=== PATIENT | male | born 1940 | race Caucasian/White ===

== ENCOUNTER 2017-07-01 14:46 | Inpatient (IN) | payer MEDICARE, OTHER ==
[~2017-07-01] VITALS: Ht 172.7 cm; Wt 78.2 kg
[2017-07-01] MEDS ORDERED: LORAZEPAM 2 MG/ML 1 ML VIAL ONE ×2 (15:14→20:23)
[2017-07-01 15:43] LABS: BASOPHILS % (AUTO) 0.4 % (0.0-5.0); EOSINOPHILS % (AUTO) 0.6 % (0.0-8.0); HEMATOCRIT 35.5 % (42-54); LYMPHOCYTES % (AUTO) 14.7 % (21.0-51.0); MEAN CORPUSCULAR HEMOGLOBIN 30.6 pg (27.0-33.0); MEAN CORPUSCULAR VOLUME 89.8 fL (79-99); MONOCYTES % (AUTO) 6.7 % (3.0-13.0); NEUTROPHILS % (AUTO) 77.6 % (40.0-77.0); PLATELET COUNT (AUTO) 290 K/uL (130-400); RED BLOOD CELL COUNT(AUTO) 3.95 MIL/uL (4.50-6.20); RED CELL DISTRIBUTION WIDTH 13.6 % (11.0-15.5); WHITE BLOOD COUNT (AUTO) 9.4 K/uL (4.8-10.8)
[2017-07-01 15:51] LABS: AMPHET/METH SCREEN,URINE NEGATIVE (NEGATIVE); BARBITURATE SCREEN, URINE NEGATIVE (NEGATIVE); BENZODIAZEPINES SCREEN,URINE NEGATIVE (NEGATIVE); CANNABINOID SCREEN,URINE NEGATIVE (NEGATIVE); COCAINE SCREEN,URINE NEGATIVE (NEGATIVE); OPIATE SCREEN,URINE POSITIVE (NEGATIVE); PHENCYCLIDINE SCREEN,URINE NEGATIVE (NEGATIVE)
[2017-07-01 15:52] LABS: CARBON DIOXIDE 31 mmol/L (21-32); CHLORIDE 100 mmol/L (101-111); CREATININE 0.9 mg/dL (0.5-1.5); GLOMERULAR FILTR. RATE CALC 87 mL/min (>60); GLUCOSE,RANDOM 110 mg/dL (70-105); POTASSIUM 3.7 mmol/L (3.5-5.1); SODIUM SERUM 140 mmol/L (136-145); UREA NITROGEN, BLOOD 9 mg/dL (7-18)
[2017-07-01 15:57] LABS: ACETAMINOPHEN < 1 mcg/mL (10-29); SALICYLATE < 2.8 mg/dL (2.8-20.0)
[2017-07-01 16:29] LABS: APPEARANCE,URINE Clear (CLEAR); BILIRUBIN,URINE Small (NEGATIVE); COLOR,URINE Dark Yellow (YELLOW); GLUCOSE, URINE (UA) Negative (NEGATIVE); KETONES,URINE >=80 mg/dL (NEGATIVE); LEUKOCYTE ESTERASE ,URINE Trace (NEGATIVE); NITRATE,URINE Negative (NEGATIVE); OCCULT BLOOD,URINE Negative (NEGATIVE); PH,URINE 5.5 (5.0-8.0); PROTEIN,URINE Negative (NEGATIVE)
[2017-07-01 16:47] LABS: BACTERIA,URINE Rare /HPF (None Seen); MUCUS,URINE Few LPF (None Seen); RBC,URINE 0-1 /HPF (0-1); SQUAMOUS EPITHELIAL CELL,UR Rare /LPF (0-2)
[2017-07-01] MEDS ORDERED: IOPAMIDOL-370 100 ML VIAL IV ONE (17:48)
[2017-07-01] MEDS ORDERED: ENOXAPARIN SODIUM 100 MG/1 ML SQ ONE (20:01)
[2017-07-01 21:31] VITALS: BP 125/69
[2017-07-01 23:32] VITALS: BP 128/74
[2017-07-02] VITALS (7 sets, daily range): BP systolic 109–146; BP diastolic 69–74
[2017-07-02] MEDS ORDERED: ONDANSETRON HCL 4 MG/2 ML VIAL IV PRN (01:45)
[2017-07-02] MEDS ORDERED: ACETAMINOPHEN 325 MG TAB PO PRN (01:45)
[2017-07-02] MEDS ORDERED: LORAZEPAM 2 MG/ML 1 ML VIAL IM PRN (01:45)
[2017-07-02] MEDS ORDERED: IPRATROPIUM/ALBUTEROL SULFATE 3 ML SOLUTION IH PRN (01:45)
[2017-07-02] MEDS ORDERED: HYDRALAZINE HCL 20 MG/ML VIAL IV PRN (01:45)
[2017-07-02 04:00] LABS: BASOPHILS % (AUTO) 0.3 % (0.0-5.0); EOSINOPHILS % (AUTO) 1.2 % (0.0-8.0); HEMATOCRIT 33.2 % (42-54); LYMPHOCYTES % (AUTO) 23.1 % (21.0-51.0); MEAN CORPUSCULAR HEMOGLOBIN 30.9 pg (27.0-33.0); MEAN CORPUSCULAR HGB CONC 34.3 g/dL (32.0-36.0); MONOCYTES % (AUTO) 9.4 % (3.0-13.0); PLATELET COUNT (AUTO) 256 K/uL (130-400); RED BLOOD CELL COUNT(AUTO) 3.69 MIL/uL (4.50-6.20); RED CELL DISTRIBUTION WIDTH 13.6 % (11.0-15.5)
[2017-07-02 04:04] LABS: CREATININE 0.8 mg/dL (0.5-1.5); POTASSIUM 3.8 mmol/L (3.5-5.1)
[2017-07-02] MEDS: FAMOTIDINE 20MG TAB 20 MG TAB PO SCH ×2 (08:47→21:41)
[2017-07-02] MEDS: ENOXAPARIN SODIUM 80 MG/0.8 ML SQ SCH ×2 (08:48→21:41)
[2017-07-02] MEDS ORDERED: ACET1TAB25 PO (10:17)
[2017-07-02] MEDS ORDERED: SYSTANE I PO (10:17)
[2017-07-02] MEDS ORDERED: ASPI-1181 PO (10:17)
[2017-07-02] MEDS ORDERED: PRAV80TA21 PO (10:17)
[2017-07-02] MEDS ORDERED: METO25TA6 PO (10:17)
[2017-07-02] MEDS ORDERED: FOLI1TAB15 PO (10:17)
[2017-07-02] MEDS ORDERED: CYAN250010 PO (10:17)
[2017-07-02] MEDS ORDERED: SERT50TA12 PO (10:17)
[2017-07-02] MEDS: MORPHINE SULFATE 2 MG/ML 1ML SYG IV PRN ×3 (10:33→22:48)
[2017-07-03 03:49] VITALS: BP 136/73
[2017-07-03 07:00] VITALS: BP 128/80
[2017-07-03] MEDS: MORPHINE SULFATE 2 MG/ML 1ML SYG IV PRN ×3 (08:35→17:28)
[2017-07-03] MEDS: ENOXAPARIN SODIUM 80 MG/0.8 ML SQ SCH (08:35)
[2017-07-03] MEDS: FAMOTIDINE 20MG TAB 20 MG TAB PO SCH (08:36)
[2017-07-03 11:00] VITALS: BP 146/89
[2017-07-03 16:00] VITALS: BP 132/78
== END 2017-07-03 18:26 | disposition home or self-care (01) | DRG 176 ==
LOC: EDH 14:46 → EDHIP 19:56 → 2DH 20:48
PROVIDERS: ADMIT Internal Medicine; ATTEND Internal Medicine
DX: I26.99 Other pulmonary embolism without acute cor pulmonale (principal); F03.90 Unspecified dementia, unspecified severity, without behavioral disturbance, psychotic disturbance, mood disturbance, and anxiety; E78.5 Hyperlipidemia, unspecified; F41.9 Anxiety disorder, unspecified; I10 Essential (primary) hypertension; I25.10 Atherosclerotic heart disease of native coronary artery without angina pectoris; Z87.891 Personal history of nicotine dependence; Z95.1 Presence of aortocoronary bypass graft; Z90.49 Acquired absence of other specified parts of digestive tract
CPT/HCPCS: 36415; 71275; 80048; 80305; 81001; 82948; 85025; 85378; 93306; 93970; 94664; A4565; G0480; G0481; J1650; J2060; Q9967

== ENCOUNTER 2018-05-05 18:32 | Emergency (ER) | payer OTHER ==
[~2018-05-05 18:32] MED LIST: ACET1TAB25 PO; ASPI-1181 PO; CYAN250010 PO; FOLI1TAB15 PO; METO25TA6 PO; PRAV80TA21 PO; SERT50TA12 PO; SYSTANE I PO
[2018-05-05 19:03] LABS: BASOPHILS % (AUTO) 0.7 % (0.0-5.0); EOSINOPHILS % (AUTO) 2.3 % (0.0-8.0); HEMATOCRIT 43.7 % (42-54); LYMPHOCYTES % (AUTO) 26.4 % (21.0-51.0); MEAN CORPUSCULAR HEMOGLOBIN 29.4 pg (27.0-33.0); MEAN CORPUSCULAR HGB CONC 33.6 g/dL (32.0-36.0); MEAN CORPUSCULAR VOLUME 87.4 fL (79-99); MONOCYTES % (AUTO) 14.9 % (3.0-13.0); NEUTROPHILS % (AUTO) 55.7 % (40.0-77.0); PLATELET COUNT (AUTO) 217 K/uL (130-400); RED CELL DISTRIBUTION WIDTH 14.5 % (11.0-15.5); WHITE BLOOD COUNT (AUTO) 5.8 K/uL (4.8-10.8)
[2018-05-05 19:10] LABS: CREATININE 0.9 mg/dL (0.5-1.5)
[2018-05-05 19:33] LABS: B-TYPE NATRIURETIC PEPTIDE 308 pg/mL (0-100)
[2018-05-05] MEDS ORDERED: METHYLPREDNISOLONE SOD SUCC 125MG/2ML VIAL ONE (19:50)
[2018-05-05] MEDS ORDERED: BENZONATATE 100 MG CAPSULE PO ONE (19:50)
== END 2018-05-05 20:09 | disposition home or self-care (01) ==
LOC: EDH 18:32
DX: J06.9 Acute upper respiratory infection, unspecified (principal); I10 Essential (primary) hypertension; Z90.49 Acquired absence of other specified parts of digestive tract; Z87.891 Personal history of nicotine dependence
CPT/HCPCS: 36415; 71046; 80048; 83880; 84484; 85025; 87804 ×2; 93005; 96374; 99284; J2930

== ENCOUNTER 2019-03-30 09:32 | Day surgery (SDC) | payer MEDICARE, OTHER ==
[2019-03-25 16:32] LABS: BASOPHILS % (AUTO) 0.7 % (0.0-5.0); EOSINOPHILS % (AUTO) 1.1 % (0.0-8.0); HEMATOCRIT 41.2 % (42-54); LYMPHOCYTES % (AUTO) 30.2 % (21.0-51.0); MEAN CORPUSCULAR HEMOGLOBIN 27.9 pg (27.0-33.0); MEAN CORPUSCULAR HGB CONC 32.4 g/dL (32.0-36.0); MEAN CORPUSCULAR VOLUME 86.2 fL (79-99); MONOCYTES % (AUTO) 8.6 % (3.0-13.0); NEUTROPHILS % (AUTO) 59.4 % (40.0-77.0); NUCLEATED RED BLOOD CELLS 0.1 % (0.0-0.19); PLATELET COUNT (AUTO) 265 K/uL (130-400); RED BLOOD CELL COUNT(AUTO) 4.78 MIL/uL (4.50-6.20); RED CELL DISTRIBUTION WIDTH 14.6 % (11.0-15.5)
[2019-03-25 16:41] LABS: POTASSIUM 4.7 mmol/L (3.5-5.1)
[2019-03-25 16:52] VITALS: BP 120/62
--- NOTE | 2019-03-25 17:21 | NUR ---
EKG INFORMED DR. RUSH OF ABNORMAL EKG. NO ORDERS RECEIVED. PROCEED WITH PLANNED PROCEDURE.
[2019-03-26] MEDS: CEFTRIAXONE SODIUM 1 GM IVP SCH (10:30)
--- NOTE | 2019-03-29 14:03 | NUR ---
SPOKE TO PT'S SON. NOTIFIED OF CHANGE OF ARRIVAL TIME TO [address] ON 03-30[address] KINGSTON REQUEST TO START EARLIER THAN WAS PREVIOUSLY INSTRUCTED. SON AGREED.
[2019-03-30] VITALS (18 sets, daily range): BP systolic 113–163; BP diastolic 56–90
[~2019-03-30] VITALS: Ht 172.7 cm; Wt 77.5 kg
[~2019-03-30 09:32] MED LIST changes: -ACET1TAB25 PO; -ASPI-1181 PO; +CYAN100099 PO; -CYAN250010 PO; +FISH1CAP63 PO; -FOLI1TAB15 PO; +MULT-1333 PO; +PYRI100T2 PO; -SYSTANE I PO
[2019-03-30] MEDS ORDERED: PROPOFOL 10 MG/ML 20ML VIAL IV ONE (10:25)
[2019-03-30] MEDS ORDERED: LIDOCAINE PF 2% 5ML ABBOJECT ONE (10:25)
[2019-03-30] MEDS ORDERED: FENTANYL CITRATE PF 50 MCG/1 ML 2ML VIAL ONE (10:26)
[2019-03-30] MEDS ORDERED: LACTATED RINGERS 1000ML 1,000 ML IV ONE (10:34)
[2019-03-30] MEDS: CEFTRIAXONE SODIUM 1 GM IVP SCH (13:20)
[2019-03-30] MEDS ORDERED: OPIUM/BELLADONNA ALKALOIDS 1 EACH SUPP.RECT RC ONE (14:45)
[2019-03-30] MEDS ORDERED: PHENAZOPYRIDINE HCL 200 MG TABLET ONE (16:07)
--- NOTE | 2019-03-30 16:29 | NUR ---
pt left via wheelchair in pvt car, d/c instructions given to , daughter, along with Rx scripts. F/u appt scheduled and Hirsch leg bag applied,bag is secured, patent and draining, urine pink. no complications upon d/c
== END 2019-03-30 16:32 | disposition home or self-care (01) ==
LOC: DAH 09:32
PROVIDERS: ATTEND Urology
DX: D49.4 Neoplasm of unspecified behavior of bladder (principal); C67.4 Malignant neoplasm of posterior wall of bladder; N21.0 Calculus in bladder; R31.0 Gross hematuria; I10 Essential (primary) hypertension; E78.00 Pure hypercholesterolemia, unspecified; F03.90 Unspecified dementia, unspecified severity, without behavioral disturbance, psychotic disturbance, mood disturbance, and anxiety; Z95.5 Presence of coronary angioplasty implant and graft; Z90.49 Acquired absence of other specified parts of digestive tract; Z98.890 Other specified postprocedural states; Z79.899 Other long term (current) drug therapy; Z87.891 Personal history of nicotine dependence; Z98.49 Cataract extraction status, unspecified eye; Z83.3 Family history of diabetes mellitus; Z82.49 Family history of ischemic heart disease and other diseases of the circulatory system; Z82.5 Family history of asthma and other chronic lower respiratory diseases
CPT/HCPCS: 36415 ×2; 52235; 52317; 80048; 82360; 85025; 88305; 93005; A4213; A4215; A4221; A4222; A4223; A4344; A4354; A4358; A4510; A4600; A4663; A6260; J0696; J2001; J2704; J3010; J7120 ×2

== ENCOUNTER 2020-02-12 07:17 | Day surgery (SDC) | payer OTHER ==
[2020-02-09 16:00] VITALS: BP 163/69
[2020-02-09 16:41] LABS: BASOPHILS % (AUTO) 0.3 % (0.0-5.0); EOSINOPHILS % (AUTO) 0.3 % (0.0-8.0); HEMATOCRIT 46.2 % (42-54); LYMPHOCYTES % (AUTO) 17.6 % (21.0-51.0); MEAN CORPUSCULAR HEMOGLOBIN 28.7 pg (27.0-33.0); MEAN CORPUSCULAR HGB CONC 31.6 g/dL (32.0-36.0); MEAN CORPUSCULAR VOLUME 90.9 fL (79-99); MONOCYTES % (AUTO) 9.3 % (3.0-13.0); NEUTROPHILS % (AUTO) 72.2 % (40.0-77.0); PLATELET COUNT (AUTO) 368 K/uL (130-400); RED BLOOD CELL COUNT(AUTO) 5.08 MIL/uL (4.50-6.20); RED CELL DISTRIBUTION WIDTH 13.2 % (11.0-15.5); WHITE BLOOD COUNT (AUTO) 9.3 K/uL (4.8-10.8)
[2020-02-09 16:51] LABS: CREATININE 1.1 mg/dL (0.5-1.5); POTASSIUM 4.6 mmol/L (3.5-5.1)
[~2020-02-12] VITALS: Ht 172.7 cm; Wt 71.4 kg
[2020-02-12] VITALS (19 sets, daily range): BP systolic 123–163; BP diastolic 58–81
[~2020-02-12 07:17] MED LIST changes: +CEFTRIAXONE SODIUM 1 GM IVP SCH; +METF-444 PO; +PYRI100T10 PO; -PYRI100T2 PO
[2020-02-12] MEDS ORDERED: SODIUM CHLORIDE 0.9% 1000ML 1,000 ML IV ONE (08:19)
[2020-02-12] MEDS ORDERED: LIDOCAINE PF 2% 5ML ABBOJECT ONE (09:52)
[2020-02-12] MEDS ORDERED: SUCCINYLCHOLINE 200MG/10ML SYR ONE (09:52)
[2020-02-12] MEDS ORDERED: PROPOFOL 10 MG/ML 20ML VIAL IV ONE (09:53)
[2020-02-12] MEDS ORDERED: FENTANYL CITRATE PF 50 MCG/1 ML 2ML VIAL ONE (09:53)
[2020-02-12] MEDS ORDERED: GLYCOPYRROLATE 1 MG/5 ML SYRINGE ONE (10:41)
--- NOTE | 2020-02-12 12:10 | NUR ---
PATIENT ARRIVED TO DAY PATIENT VIA STRETCHER BY SHAMA PARKS. PATIENT [id number], RESPIRATIONS UNLABORED, VITAL SIGNS STABLE. DENIES ANY PAIN AT THIS TIME. RODRIGES CATHETER IN PLACE, DRAINING PINK TINGED URINE.
[2020-02-12] MEDS ORDERED: PHENAZOPYRIDINE HCL 200 MG TABLET ONE (12:32)
--- NOTE | 2020-02-12 12:40 | NUR ---
RODRIGES BAG CHANGED OUT TO LEG BAG, PATIENT TOLERATED WELL. RODRIGES BAG INSTRUCTIONS PROVIDED TO SPOUSE AT BEDSIDE.
--- NOTE | 2020-02-12 12:50 | NUR ---
PATIENT DISCHARGED FROM FACILITY VIA WHEELCHAIR AND ASSISTED INTO PRIVATE VEHICLE DRIVEN BY SPOUSE.
== END 2020-02-12 12:50 | disposition home or self-care (01) ==
LOC: DAH 07:17
PROVIDERS: ATTEND Urology
DX: N21.0 Calculus in bladder (principal); Z20.828 Contact with and (suspected) exposure to other viral communicable diseases; I10 Essential (primary) hypertension; M19.90 Unspecified osteoarthritis, unspecified site; K21.9 Gastro-esophageal reflux disease without esophagitis; I25.10 Atherosclerotic heart disease of native coronary artery without angina pectoris; Z87.891 Personal history of nicotine dependence; Z85.51 Personal history of malignant neoplasm of bladder; Z90.49 Acquired absence of other specified parts of digestive tract; Z98.890 Other specified postprocedural states; Z95.1 Presence of aortocoronary bypass graft; Z98.49 Cataract extraction status, unspecified eye
CPT/HCPCS: 36415 ×2; 52317; 80048; 82360; 82948 ×2; 85025; 93005; A4215; A4216; A4221; A4222; A4223 ×3; A4344; A4358; A4606; A4663; C9803; J0330; J0696; J2001; J2704; J3010; J3490; J7030; J7120; U0003